=== PATIENT | female | born 1955 | race Caucasian/White ===

== ENCOUNTER 2019-10-30 08:17 | Emergency (ER) | payer MEDICARE, MEDICAID ==
--- NOTE | 2019-10-30 10:46 | ULT ---
Exam: Left lower extremity venous ultrasound with Doppler HISTORY: Left leg swelling. COMPARISON: None TECHNIQUE: Grayscale, color flow, Doppler imaging and spectral wave was performed left lower extremit y venous system FINDINGS: Compressibility, presence of flow and augmentation in the common femoral vein, femoral vein and popli teal vein. Flow the greater saphenous vein, profunda femoral vein and posterior tibial vein IMPRESSION: No evidence of thrombus the left lower deep venous system
== END 2019-10-30 11:37 | disposition home or self-care (01) ==
LOC: ERS 08:17
DX: S80.12XA Contusion of left lower leg, initial encounter (principal); E11.9 Type 2 diabetes mellitus without complications; I10 Essential (primary) hypertension; Z86.73 Personal history of transient ischemic attack (TIA), and cerebral infarction without residual deficits; X58.XXXA Exposure to other specified factors, initial encounter

== ENCOUNTER 2021-05-02 18:21 | Emergency (ER) | payer MEDICARE, MEDICAID ==
[2021-05-02 19:13] LABS: #Basophils 0.1 thou/uL (0.0-0.2); #Eosinphils 0.5 thou/uL (0.0-0.7); #Lymphocytes 2.3 thou/uL (1.20-3.40); #Monocytes 0.8 thou/uL (0.11-0.59); #Neutrophils 8.7 thou/uL (1.40-6.50); %Basophils 0.4 % (0.0-1.0); %Eosinophils 3.7 % (0.0-10.0); %Lymphocytes 18.5 % (21.0-51.0); %Monocytes 6.4 % (0.0-10.0); Hemoglobin 5.7 g/dL (12.0-16.0); Mean Corpuscular HGB CONC 33.4 g/dL (32.0-36.0); Mean Corpuscular Hemoglobin 29.9 pg (27.0-31.0); Mean Corpuscular Volume 89.6 fL (78.0-98.0); Platelet Count 390 thou/uL (130-400); RBC Distribution Width 12.1 % (11.5-14.5); Red Blood Cell (RBC) Count 1.91 mill/uL (4.20-5.40); White Blood Cell (WBC) Count 12.3 thou/uL (4.8-10.8)
[2021-05-02 19:23] LABS: Prothrombin Time 13.5 sec (12.0-14.7)
[2021-05-02 19:26] LABS: PTT 18.7 sec (22.9-36.1)
[2021-05-02 19:33] LABS: ALT (SGPT) 8 U/L (8-55); AST (SGOT) 18 U/L (5-34); Albumin 3.4 g/dL (3.4-4.8); Alkaline Phosphatase 73 U/L (40-110); Anion Gap 16 mmol/L (10-20); BUN (Urea Nitrogen) 34 mg/dL (9.8-20.1); Bilirubin, Total 0.3 mg/dL (0.2-1.2); Calc. Creatinine Clearance 0 mL/min (70-130); Calcium 8.3 mg/dL (7.8-10.44); Carbon Dioxide 20 mmol/L (23-31); Chloride 109 mmol/L (98-107); Globulin 2.8 g/dL (2.4-3.5); Glucose 132 mg/dL (80-115); Lipase 18 U/L (8-78); Magnesium 1.6 mg/dL (1.6-2.6); Potassium 5.1 mmol/L (3.5-5.1); Protein, Total 6.2 g/dL (5.8-8.1); Sodium 140 mmol/L (136-145)
[2021-05-02] MEDS ORDERED: Pantoprazole 80 MG, Admixture Fee 1 EACH in Sodium Chloride 0.9% 100 ML IVPB SCH (19:45)
[2021-05-02 19:54] LABS: CKMB 1.1 ng/mL (0-6.6)
[2021-05-02] MEDS ORDERED: Pantoprazole 40 MG VIAL ONE (20:54)
[2021-05-02 20:55] LABS: Bilirubin Negative (Negative); Blood, Urine 1+ (Negative); Clarity Turbid (Clear); Glucose, Urine (Dipstick) Normal (Negative); Ketone, Urine Negative (Negative); Leukocyte 25 Leu/uL (Negative); Nitrite Negative (Negative); Protein, Urine (Dipstick) 70 mg/dL (Neg-Trace); RBC/HPF 21-50 HPF (0-3); Renal Epithelial 0-3 HPF (None Seen); Specific Gravity, Urine 1.022 (1.002-1.036); Squamous Epithelial 0-3 HPF (0-3); pH, Urine 5.5 (5.0-9.0)
[2021-05-02] MEDS ORDERED: Tranexamic Acid 1,000 MG/10 ML VIAL ONE ×2 (20:55→21:05)
[2021-05-02 21:07] LABS: Bacteria/HPF Rare-Few HPF (None Seen)
[2021-05-02] MEDS ORDERED: diphenhydrAMINE 50 MG/ML VIAL ONE (22:35)
[2021-05-02] MEDS ORDERED: Haloperidol Lactate 5 MG/ML VIAL ONE (22:35)
== END 2021-05-03 00:50 | disposition short-term general hospital (02) ==
LOC: ERS 18:21
DX: D64.9 Anemia, unspecified (principal); N39.0 Urinary tract infection, site not specified; R41.82 Altered mental status, unspecified; N93.9 Abnormal uterine and vaginal bleeding, unspecified; E11.9 Type 2 diabetes mellitus without complications; E78.5 Hyperlipidemia, unspecified; E78.00 Pure hypercholesterolemia, unspecified; I10 Essential (primary) hypertension; Z86.73 Personal history of transient ischemic attack (TIA), and cerebral infarction without residual deficits; Z79.4 Long term (current) use of insulin; Z79.899 Other long term (current) drug therapy; Z79.82 Long term (current) use of aspirin
CPT/HCPCS: 36430; 70450; 71045; 74176; 76856; 80053; 82553; 82962; 83605; 83690; 83735; 83880; 84484; 85025; 85610; 85730; 86850; 86900; 86901; 86920; 87040; 87086; 87149 ×2; 93005; 93976; P9016; 36415; 36416; 81003; 81015; 96365; 96375; C9113; J1200; J1630; J3490